=== PATIENT | female | born 1965 | race African-American/Black ===

== ENCOUNTER 2019-02-11 20:29 | Inpatient (IN) | payer MEDICAID ==
[~2019-02-11] VITALS: Ht 177.8 cm; Wt 40.6 kg
[~2019-02-11 20:29] MED LIST: DIAZ10TA PO; DIPH1TAB76 PO; ZOLP5TAB2 PO
[2019-02-11] MEDS ORDERED: SODIUM CHLORIDE 0.9% 1000ML BAG (SEPSIS BOLUS) IV ONE (21:15)
[2019-02-11 22:17] LABS: BASOPHILS % 0.2 % (0.0-2.0); EOSINOPHILS % 0.1 % (0.0-5.0); HEMATOCRIT. 31.2 % (36.0-48.0); HEMOGLOBIN. 10.9 g/dL (12.0-16.0); LYMPHOCYTES % 7.5 % (20.0-50.0); MEAN CORPUSCULAR HEMOGLOBIN 28.1 pg (28.0-32.0); MEAN CORPUSCULAR VOLUME 80.9 fL (81.0-99.0); MEAN PLATELET VOLUME 7.4 fl (7.4-10.4); MONOCYTES % 4.6 % (2.0-8.0); NEUTROPHILS % 87.6 % (40.0-76.0); PLATELET 241 x1000/uL (130-400); RED BLOOD CELL COUNT 3.86 mill/uL (4.2-5.4); RED CELL DISTRIBUTION WIDTH 12.5 % (11.6-14.6)
[2019-02-11 22:23] LABS: CHLORIDE 103 mEq/L (98-107)
[2019-02-11 23:06] LABS: INR 1.1; PROTHROMBIN TIME 11.3 sec (9.6-11.0)
[2019-02-12] VITALS (7 sets, daily range): BP systolic 91–115; BP diastolic 53–70
[2019-02-12 00:09] LABS: CLARITY URINE CLOUDY (CLEAR); COLOR URINE ORANGE (YELLOW); KETONES URINE TRACE (NEGATIVE); LEUKOCYTE ESTERASE URINE 1+ (NEGATIVE); NITRITE URINE POSITIVE (NEGATIVE); OCCULT BLOOD URINE 2+ (NEGATIVE); PROTEIN URINE 1+ (NEGATIVE); SPECIFIC GRAVITY URINE 1.036 (1.005-1.030)
[2019-02-12] MEDS ORDERED: ACETAMINOPHEN 325MG TABLET PO ONE ×2 (00:15)
[2019-02-12] MEDS ORDERED: ONDANSETRON HCL 4MG/2ML INJ IV ONE (02:15)
[2019-02-12] MEDS ORDERED: MORPHINE SULFATE 4 MG/ML CPJ (NOT FOR IM USE) IV PRN (06:15)
[2019-02-12] MEDS ORDERED: ONDANSETRON HCL 4MG/2ML INJ IV PRN ×2 (06:15→06:30)
[2019-02-12] MEDS: ENOXAPARIN 30MG/0.3ML SYR SUBCUT SCH (09:00)
[2019-02-12 09:01] LABS: HEMATOCRIT 31.6 % (36.0-48.0); MEAN CORPUSCULAR HEMOGLOBIN 28.1 pg (28.0-32.0); MEAN CORPUSCULAR VOLUME 80.7 fL (81.0-99.0); PLATELET 249 x1000/uL (130-400); RED BLOOD CELL COUNT 3.92 mill/uL (4.2-5.4); RED CELL DISTRIBUTION WIDTH 12.8 % (11.6-14.6)
[2019-02-12 09:19] LABS: CHLORIDE 105 mEq/L (98-107)
[2019-02-12] MEDS: SODIUM CHL 0.45% + KCL 20MEQ/L 1,000 ML IV SCH ×3 (12:54→21:43)
[2019-02-12] MEDS: AZITHROMYCIN 500 MG TABLET PO SCH (13:15)
[2019-02-12] MEDS: ACETYLCYSTEINE 100MG/ML 10% VIAL 4ML INH SCH (14:00)
[2019-02-12] MEDS: CEFTRIAXONE 1 G PREMIX 50 ML IV SCH (15:10)
[2019-02-12] MEDS: LIDOCAINE 5% PATCH TOP SCH (18:07)
[2019-02-12] MEDS: GUAIFENESIN 600MG ER TABLET PO SCH (21:00)
[2019-02-13] VITALS: BP 108/64
[2019-02-13 04:00] VITALS: BP 97/59
[2019-02-13] MEDS: SODIUM CHL 0.45% + KCL 20MEQ/L 1,000 ML IV SCH ×3 (06:04→23:03)
[2019-02-13] MEDS: ACETYLCYSTEINE 100MG/ML 10% VIAL 4ML INH SCH ×3 (07:53→17:47)
[2019-02-13 08:00] VITALS: BP 103/55
[2019-02-13] MEDS: AZITHROMYCIN 500 MG TABLET PO SCH (09:00)
[2019-02-13] MEDS: ENOXAPARIN 30MG/0.3ML SYR SUBCUT SCH (09:00)
[2019-02-13] MEDS: LIDOCAINE 5% PATCH TOP SCH (09:00)
[2019-02-13] MEDS: GUAIFENESIN 600MG ER TABLET PO SCH ×2 (09:00→20:02)
[2019-02-13] MEDS: IPRATROPIUM/ALBUTEROL 0.5-3(2.5)MG/3ML NEB HHN SCH ×3 (10:35→17:47)
[2019-02-13 12:00] VITALS: BP 99/62
[2019-02-13] MEDS: CEFTRIAXONE 1 G PREMIX 50 ML IV SCH (15:19)
[2019-02-13 16:00] VITALS: BP 103/68
[2019-02-13 20:00] VITALS: BP 122/67
[2019-02-14] VITALS: BP 125/69
[2019-02-14] MEDS: IPRATROPIUM/ALBUTEROL 0.5-3(2.5)MG/3ML NEB HHN SCH ×6 (00:10→19:55)
[2019-02-14 04:00] VITALS: BP 107/68
[2019-02-14 07:14] LABS: TOTAL IRON BINDING CAPACITY 286 ug/dL (250-450)
[2019-02-14 08:00] VITALS: BP 103/67
[2019-02-14] MEDS: ACETYLCYSTEINE 100MG/ML 10% VIAL 4ML INH SCH ×2 (08:00→13:31)
[2019-02-14] MEDS: ENOXAPARIN 30MG/0.3ML SYR SUBCUT SCH (09:00)
[2019-02-14] MEDS: AZITHROMYCIN 500 MG TABLET PO SCH (09:00)
[2019-02-14] MEDS: GUAIFENESIN 600MG ER TABLET PO SCH ×2 (09:00→20:36)
[2019-02-14] MEDS: LIDOCAINE 5% PATCH TOP SCH (09:00)
[2019-02-14] MEDS: SODIUM CHL 0.45% + KCL 20MEQ/L 1,000 ML IV SCH (09:25)
[2019-02-14 12:00] VITALS: BP 106/62
[2019-02-14] MEDS: CEFTRIAXONE 1 G PREMIX 50 ML IV SCH (14:20)
[2019-02-14 16:00] VITALS: BP 103/62
[2019-02-14 20:00] VITALS: BP 105/61
[2019-02-14] MEDS: ZOLPIDEM TARTRATE 5MG TABLET PO PRN (22:36)
[2019-02-15] VITALS (7 sets, daily range): BP systolic 93–129; BP diastolic 50–72
[2019-02-15] MEDS: IPRATROPIUM/ALBUTEROL 0.5-3(2.5)MG/3ML NEB HHN SCH ×5 (08:00→20:00)
[2019-02-15] MEDS: GUAIFENESIN 600MG ER TABLET PO SCH ×2 (09:00→20:54)
[2019-02-15] MEDS: AZITHROMYCIN 500 MG TABLET PO SCH (09:00)
[2019-02-15] MEDS: LIDOCAINE 5% PATCH TOP SCH ×2 (09:00→10:40)
[2019-02-15] MEDS: ENOXAPARIN 30MG/0.3ML SYR SUBCUT SCH (09:00)
[2019-02-15] MEDS: SODIUM CHL 0.45% + KCL 20MEQ/L 1,000 ML IV SCH ×2 (14:15→22:15)
[2019-02-15] MEDS: CEFTRIAXONE 1 G PREMIX 50 ML IV SCH (15:00)
[2019-02-15] MEDS: ACETYLCYSTEINE 100MG/ML 10% VIAL 4ML INH SCH ×2 (16:42→23:59)
[2019-02-15] MEDS: ZOLPIDEM TARTRATE 5MG TABLET PO PRN (20:55)
[2019-02-16] VITALS: BP 96/54
[2019-02-16] MEDS: IPRATROPIUM/ALBUTEROL 0.5-3(2.5)MG/3ML NEB HHN SCH ×5 (03:55→15:07)
[2019-02-16 04:00] VITALS: BP 101/63
[2019-02-16] MEDS: SODIUM CHL 0.45% + KCL 20MEQ/L 1,000 ML IV SCH ×2 (06:07→14:15)
[2019-02-16 07:56] VITALS: BP 95/65
[2019-02-16] MEDS: ACETYLCYSTEINE 100MG/ML 10% VIAL 4ML INH SCH ×2 (08:24→14:00)
[2019-02-16] MEDS: LIDOCAINE 5% PATCH TOP SCH (09:00)
[2019-02-16] MEDS: ENOXAPARIN 30MG/0.3ML SYR SUBCUT SCH (09:00)
[2019-02-16] MEDS: GUAIFENESIN 600MG ER TABLET PO SCH (09:00)
[2019-02-16] MEDS: AZITHROMYCIN 500 MG TABLET PO SCH (09:00)
[2019-02-16 12:08] VITALS: BP 101/68
[2019-02-16 13:29] VITALS: BP 101/68
[2019-02-16] MEDS: CEFTRIAXONE 1 G PREMIX 50 ML IV SCH (14:15)
[2019-02-16 20:00] VITALS: BP 98/58
== END 2019-02-16 20:17 | disposition home or self-care (01) | DRG 139 ==
LOC: ER 21:21 → EDBEDREQ 23:15 → EDBEDREQSVC 23:15 → EDBEDREQTM 23:15 → ENRESERV 02-12 03:01 → 7WST 02-12 03:22 → 8WST 02-15 08:03
PROVIDERS: ADMIT Internal Medicine; ATTEND Internal Medicine
DX: J18.1 Lobar pneumonia, unspecified organism (principal); J96.00 Acute respiratory failure, unspecified whether with hypoxia or hypercapnia; L89.153 Pressure ulcer of sacral region, stage 3; C78.00 Secondary malignant neoplasm of unspecified lung; C78.7 Secondary malignant neoplasm of liver and intrahepatic bile duct; R64 Cachexia; J90 Pleural effusion, not elsewhere classified; N13.6 Pyonephrosis; C79.51 Secondary malignant neoplasm of bone; I95.9 Hypotension, unspecified; C50.919 Malignant neoplasm of unspecified site of unspecified female breast; R13.10 Dysphagia, unspecified; D63.0 Anemia in neoplastic disease; R62.7 Adult failure to thrive; F31.9 Bipolar disorder, unspecified; F41.9 Anxiety disorder, unspecified; N85.2 Hypertrophy of uterus; Z51.5 Encounter for palliative care; Z66 Do not resuscitate; Z85.3 Personal history of malignant neoplasm of breast; Z90.12 Acquired absence of left breast and nipple; Z92.21 Personal history of antineoplastic chemotherapy; Z68.1 Body mass index [BMI] 19.9 or less, adult; Z92.3 Personal history of irradiation; Z79.899 Other long term (current) drug therapy
CPT/HCPCS: 36415; 71045; 74176; 82728; 83540; 83550; 83605; 84134; 84145; 84484; 85027; 92610; 93005; 93970; 94640; 96374; 96375; 97163; 99291; J0696; J1650; J2270; J2405; J3480; J7030; J7040; J7050; J7608; J7620